=== PATIENT | female | born 2000 | race Caucasian/White ===

== ENCOUNTER 2023-10-09 19:14 | Emergency (ER) | payer SELFPAY ==
[2023-10-09 20:23] LABS: CORONAVIRUS COVID-19 NAA NEGATIVE (NEGATIVE); INFLUENZA A NAA NEGATIVE (NEGATIVE); INFLUENZA B NAA NEGATIVE (NEGATIVE)
== END 2023-10-09 20:50 | disposition home or self-care (01) ==
LOC: MW.ED 19:14
DX: J01.90 Acute sinusitis, unspecified (principal)
CPT/HCPCS: 0240U; 87651; 99284; 99282

== ENCOUNTER 2024-07-05 18:58 | Emergency (ER) | payer SELFPAY | END 2024-07-05 20:56 | disposition home or self-care (01) | LOC: MW.ED 18:58 | DX: B34.9 Viral infection, unspecified (principal) | CPT/HCPCS: 87428-QW; 87651-QW; 99284 ==

== ENCOUNTER 2024-12-21 18:24 | Emergency (ER) | payer SELFPAY ==
[2024-12-21] MEDS: Ketorolac 30 MG/ML SDV IM ONE (20:29)
== END 2024-12-21 20:53 | disposition home or self-care (01) ==
LOC: MW.ED 18:24
DX: M54.41 Lumbago with sciatica, right side (principal); Z75.3 Unavailability and inaccessibility of health-care facilities; Z79.899 Other long term (current) drug therapy
CPT/HCPCS: 96372; 99283; J1100; J1885